=== PATIENT | female | born 1960 | race Caucasian/White ===

== ENCOUNTER 2019-01-28 19:43 | Emergency (ER) | payer OTHER ==
[~2019-01-28] VITALS: Ht 165.1 cm; Wt 68.0 kg
[2019-01-28 20:24] LABS: URINE BILIRUBIN NEGATIVE (Negative); URINE BLOOD NEGATIVE (Negative); URINE CLARITY CLEAR; URINE COLOR YELLOW; URINE GLUCOSE-RANDOM* NEGATIVE (Negative); URINE KETONES NEGATIVE (Negative); URINE PROTEIN (DIPSTICK) NEGATIVE (Negative); URINE SPECIFIC GRAVITY <= 1.005 (1.005-1.035); URINE UROBILINOGEN 0.2 E.U./dl (0.2-1.0)
[2019-01-28 20:41] LABS: URINE LEUKOCYTES-REFLEX 1+ (Negative); URINE NITRITE-REFLEX POSITIVE (Negative)
[2019-01-28 20:48] LABS: CASTS None Seen /LPF (None Seen); CRYSTALS None Seen /LPF (None Seen); SQUAMOUS 0-3 Few /LPF (0-3); URINE RBC 0-2 Rare /HPF (0-2); URINE WBC-REFLEX 6-15 Few /HPF (0-5)
[2019-01-28 20:49] LABS: BACTERIA-REFLEX >30 Many /HPF (None Seen)
[2019-01-28] MEDS ORDERED: KEFLEX500 M1 PO (20:51)
[2019-01-28 21:14] VITALS: BP 125/88
== END 2019-01-28 21:15 | disposition home or self-care (01) ==
LOC: ER 19:43
PROVIDERS: Physician Assistant
DX: N39.0 Urinary tract infection, site not specified (principal); E11.65 Type 2 diabetes mellitus with hyperglycemia

== ENCOUNTER 2019-02-26 13:05 | Emergency (ER) | payer OTHER ==
[~2019-02-26] VITALS: Ht 162.6 cm; Wt 68.0 kg
[~2019-02-26 13:05] MED LIST: KEFLEX500 M1 PO
[2019-02-26 13:09] VITALS: BP 138/69
[2019-02-26 13:26] LABS: URINE BILIRUBIN NEGATIVE (Negative); URINE BLOOD NEGATIVE (Negative); URINE CLARITY CLEAR; URINE COLOR YELLOW; URINE GLUCOSE-RANDOM* NEGATIVE (Negative); URINE KETONES NEGATIVE (Negative); URINE LEUKOCYTES-REFLEX TRACE (Negative); URINE NITRITE-REFLEX NEGATIVE (Negative); URINE PROTEIN (DIPSTICK) NEGATIVE (Negative); URINE SPECIFIC GRAVITY <= 1.005 (1.005-1.035); URINE UROBILINOGEN 0.2 E.U./dl (0.2-1.0)
[2019-02-26] MEDS ORDERED: RISPERIDONE 1 MG1 MG PO (13:32)
[2019-02-26] MEDS ORDERED: CELEXA20 MG PO (13:32)
[2019-02-26] MEDS ORDERED: TRAZODONE HCL100 MG PO (13:32)
[2019-02-26] MEDS ORDERED: LIPITOR 20 MG T20 M1 PO (13:33)
[2019-02-26] MEDS ORDERED: VITAMIN D350000 UNIT PO (13:33)
[2019-02-26] MEDS ORDERED: METFORMIN HCL1000 MG PO (13:33)
== END 2019-02-26 14:10 | disposition home or self-care (01) ==
LOC: ER 13:05
PROVIDERS: Physician Assistant
DX: R35.0 Frequency of micturition (principal); E11.9 Type 2 diabetes mellitus without complications

== ENCOUNTER → 2019-03-07 | Emergency (ER) | payer OTHER ==
[~2019-03-07] MED LIST changes: +CELEXA20 MG PO; +LIPITOR 20 MG T20 M1 PO; +METFORMIN HCL1000 MG PO; +RISPERIDONE 1 MG1 MG PO; +TRAZODONE HCL100 MG PO; +VITAMIN D350000 UNIT PO
[2019-03-07 17:51] VITALS: BP 114/82
== END ==
LOC: ER 17:45
DX: Z53.21 Procedure and treatment not carried out due to patient leaving prior to being seen by health care provider (principal)

== ENCOUNTER 2019-04-10 09:21 | Emergency (ER) | payer OTHER ==
[~2019-04-10] VITALS: Ht 160 cm; Wt 68.0 kg
[2019-04-10] MEDS ORDERED: LEXAPRO 10 MG T10 M2 PO (09:43)
[2019-04-10] MEDS ORDERED: TYLENOL EXTRA500 MG PO (09:44)
[2019-04-10 10:00] LABS: URINE BILIRUBIN NEGATIVE (Negative); URINE BLOOD NEGATIVE (Negative); URINE CLARITY CLEAR; URINE COLOR YELLOW; URINE GLUCOSE-RANDOM* NEGATIVE (Negative); URINE KETONES NEGATIVE (Negative); URINE LEUKOCYTES-REFLEX NEGATIVE (Negative); URINE NITRITE-REFLEX NEGATIVE (Negative); URINE PROTEIN (DIPSTICK) NEGATIVE (Negative); URINE SPECIFIC GRAVITY <= 1.005 (1.005-1.035); URINE UROBILINOGEN 0.2 E.U./dl (0.2-1.0)
[2019-04-10 10:11] LABS: ABSOLUTE NEUTROPHILS 5.3 thou/uL (1.4-8.2); BASOPHILS 0.5 % (0.0-2.0); EOSINOPHILS 1.4 % (0.0-3.0); HEMATOCRIT 36.8 % (37.0-47.0); HEMOGLOBIN 12.5 gm/dL (12.0-15.0); LYMPHOCYTES 22.5 % (24.0-44.0); MCH 32.2 pg (26.0-34.0); MCV 94.8 fL (80.0-100.0); MONOCYTES 9.2 % (1.0-8.0); PLATELET COUNT 334 thou/uL (150-400); POLYS 66.4 % (36.0-66.0); RBC 3.88 mil/uL (4.20-5.00); RDW 13.6 % (10.5-14.5); WBC 7.9 thou/uL (4.0-11.0)
[2019-04-10 10:18] LABS: CALCIUM 9.9 mg/dL (8.5-10.1); CREATININE 0.7 mg/dL (0.6-1.0); POTASSIUM 4.5 mmol/L (3.5-5.1)
[2019-04-10] MEDS ORDERED: KEFLEX500 M1 PO (10:33)
[2019-04-10 10:55] VITALS: BP 125/68
== END 2019-04-10 10:56 | disposition home or self-care (01) ==
LOC: ER 09:21
PROVIDERS: Emergency Medicine
DX: N30.00 Acute cystitis without hematuria (principal); E87.1 Hypo-osmolality and hyponatremia; R19.7 Diarrhea, unspecified; E11.9 Type 2 diabetes mellitus without complications

== ENCOUNTER 2019-04-28 18:15 | Emergency (ER) | payer OTHER ==
[~2019-04-28] VITALS: Ht 167.6 cm; Wt 63.5 kg
[~2019-04-28 18:15] MED LIST changes: +LEXAPRO 10 MG T10 M2 PO; +TYLENOL EXTRA500 MG PO
[2019-04-28 19:53] LABS: ABSOLUTE NEUTROPHILS 6.3 thou/uL (1.4-8.2); BASOPHILS 0.4 % (0.0-2.0); EOSINOPHILS 1.4 % (0.0-3.0); HEMATOCRIT 33.6 % (37.0-47.0); HEMOGLOBIN 11.3 gm/dL (12.0-15.0); MCH 32.1 pg (26.0-34.0); MCHC 33.6 g/dL (28.0-37.0); MCV 95.4 fL (80.0-100.0); MONOCYTES 9.9 % (1.0-8.0); PLATELET COUNT 266 thou/uL (150-400); POLYS 65.3 % (36.0-66.0); RBC 3.52 mil/uL (4.20-5.00); RDW 13.6 % (10.5-14.5); WBC 9.7 thou/uL (4.0-11.0)
[2019-04-28 20:10] LABS: ANION GAP 8 mmol/L (7-16); BUN 12 mg/dL (7-18); CALCIUM 8.8 mg/dL (8.5-10.1); CHLORIDE 92 mmol/L (98-107); CO2 27 mmol/L (21-32); CREATININE 0.7 mg/dL (0.6-1.0); GLUCOSE 120 mg/dL (74-106); POTASSIUM 4.1 mmol/L (3.5-5.1); SODIUM 127 mmol/L (136-145)
[2019-04-28 20:20] LABS: ALBUMIN 3.4 g/dL (3.4-5.0); LIPASE 153 U/L (73-393); SGOT 12 U/L (15-37); SGPT 17 U/L (30-65); TOTAL BILIRUBIN 0.2 mg/dL (<0.1-1.0); TOTAL PROTEIN 6.9 g/dL (6.4-8.2); TROPONIN-I <0.06 ng/mL (<0.06)
[2019-04-28 20:46] LABS: URINE BILIRUBIN NEGATIVE (Negative); URINE BLOOD NEGATIVE (Negative); URINE CLARITY CLEAR; URINE COLOR YELLOW; URINE GLUCOSE-RANDOM* NEGATIVE (Negative); URINE KETONES NEGATIVE (Negative); URINE NITRITE-REFLEX NEGATIVE (Negative); URINE PROTEIN (DIPSTICK) NEGATIVE (Negative); URINE SPECIFIC GRAVITY <= 1.005 (1.005-1.035); URINE UROBILINOGEN 0.2 E.U./dl (0.2-1.0)
[2019-04-28 20:49] LABS: URINE LEUKOCYTES-REFLEX 1+ (Negative)
[2019-04-28 21:00] LABS: CASTS None Seen /LPF (None Seen); MUCUS None Seen strn/LPF (None Seen); SQUAMOUS None Seen /LPF (0-3); URINE RBC 0-2 Rare /HPF (0-2); URINE WBC-REFLEX 0-5 Rare /HPF (0-5)
[2019-04-28 21:01] LABS: BACTERIA-REFLEX 1-9 Few /HPF (None Seen); CRYSTALS None Seen /LPF (None Seen)
[2019-04-28] MEDS ORDERED: ONDANSETRON ODT4 MG PO (21:05)
[2019-04-28 21:45] VITALS: BP 91/61
--- NOTE | 2019-04-30 09:08 | EKG ---
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
== END 2019-04-28 21:45 | disposition home or self-care (01) ==
LOC: ER 18:15
PROVIDERS: Emergency Medicine
DX: R11.2 Nausea with vomiting, unspecified (principal); R10.9 Unspecified abdominal pain; E11.65 Type 2 diabetes mellitus with hyperglycemia